=== PATIENT | male | born 1955 | race African-American/Black ===

== ENCOUNTER 2019-10-24 15:43 | Inpatient (IN) | payer MEDICAID, OTHER ==
[~2019-10-24] VITALS: Ht 190.5 cm; Wt 102.1 kg
[2019-10-24] MEDS ORDERED: ASPIRIN 325MG EC TABLET PO ONE (21:15)
[2019-10-24] MEDS ORDERED: ONDANSETRON HCL 4MG/2ML INJ IV ONE (21:15)
[2019-10-24] MEDS ORDERED: MORPHINE SULFATE 10 MG/ML CPJ IV ONE (21:15)
[2019-10-24 21:44] LABS: BASOPHILS % 0.3 % (0.0-2.0); EOSINOPHILS % 0.4 % (0.0-5.0); HEMATOCRIT. 38.1 % (42.0-52.0); LYMPHOCYTES % 17.9 % (20.0-50.0); MEAN CORPUSCULAR HEMOGLOBIN 35.3 pg (28.0-32.0); MEAN CORPUSCULAR VOLUME 103.6 fL (80.0-94.0); MEAN PLATELET VOLUME 7.8 fl (7.4-10.4); MONOCYTES % 11.3 % (2.0-8.0); NEUTROPHILS % 70.1 % (40.0-76.0); PLATELET 183 x1000/uL (130-400); RED BLOOD CELL COUNT 3.67 mill/uL (4.7-6.1); RED CELL DISTRIBUTION WIDTH 15.1 % (11.6-14.6)
[2019-10-24 21:51] LABS: CHLORIDE 98 mEq/L (98-107)
[2019-10-24] MEDS ORDERED: SODIUM CHLORIDE 0.9% 1,000 ML IV ONE (22:13)
[2019-10-24 22:39] LABS: D-DIMER 9.01 mg/L FEU (<0.50); PARTIAL THROMBOPLASTIN TIME 26.6 sec (23.4-31.0); PROTHROMBIN TIME 10.5 sec (9.6-11.0)
[2019-10-24 23:00] LABS: CLARITY URINE CLEAR (CLEAR); COLOR URINE YELLOW (YELLOW); KETONES URINE TRACE (NEGATIVE); LEUKOCYTE ESTERASE URINE NEGATIVE (NEGATIVE); NITRITE URINE NEGATIVE (NEGATIVE); OCCULT BLOOD URINE NEGATIVE (NEGATIVE); PROTEIN URINE 1+ (NEGATIVE); SPECIFIC GRAVITY URINE 1.016 (1.005-1.030)
[2019-10-24] MEDS ORDERED: MORPHINE SULFATE 4 MG/ML CPJ (NOT FOR IM USE) IV ONE (23:45)
[2019-10-25 05:53] VITALS: BP 161/71
[2019-10-25] MEDS: MORPHINE SULFATE 2 MG/ML CPJ (NOT FOR IM USE) IV PRN ×3 (06:47→21:19)
[2019-10-25 08:00] VITALS: BP 121/70
[2019-10-25] MEDS ORDERED: ONDANSETRON HCL 4MG/2ML INJ IV PRN (08:15)
[2019-10-25] MEDS: BLOOD SUGAR DIAGNOSTIC STRIP TEST SCH ×4 (08:15→21:16)
[2019-10-25] MEDS: METOPROLOL TARTRATE 25MG TABLET PO SCH ×2 (08:41→21:13)
[2019-10-25] MEDS: ASPIRIN 81MG TABLET PO SCH (08:42)
[2019-10-25] MEDS: INSULIN LISPRO 100 UNITS/ML SUBCUT SCH ×4 (08:53→21:27)
[2019-10-25] MEDS: INSULIN GLARGINE UD 100 UNITS/ML SYR SUBCUT SCH ×2 (10:28→22:13)
[2019-10-25] MEDS ORDERED: LIDOCAINE HCL 1% 20ML VIAL (Pyxis) INJ ONE (13:43)
[2019-10-25 16:00] VITALS: BP 155/77
[2019-10-25 17:20] LABS: CHLORIDE 101 mEq/L (98-107)
[2019-10-25 17:29] LABS: LDL CHOLESTEROL 19 mg/dL (5-100)
[2019-10-25 17:31] LABS: HDL CHOLESTEROL 67 mg/dL (40-59)
[2019-10-25 20:00] VITALS: BP_SYST 109; BP_SYST 133; BP_SYST 142; BP_DIAS 69; BP_DIAS 70; BP_DIAS 74
[2019-10-25] MEDS: FAMOTIDINE 20MG TABLET PO SCH (21:12)
[2019-10-25 23:07] LABS: BASOPHILS % 0.6 % (0.0-2.0); HEMATOCRIT. 34.9 % (42.0-52.0); HEMOGLOBIN. 11.9 g/dL (14.0-18.0); LYMPHOCYTES % 26.2 % (20.0-50.0); MEAN CORPUSCULAR HEMOGLOBIN 35.5 pg (28.0-32.0); MEAN CORPUSCULAR VOLUME 103.8 fL (80.0-94.0); MEAN PLATELET VOLUME 8.6 fl (7.4-10.4); MONOCYTES % 13.2 % (2.0-8.0); PLATELET 179 x1000/uL (130-400); RED BLOOD CELL COUNT 3.36 mill/uL (4.7-6.1); RED CELL DISTRIBUTION WIDTH 14.9 % (11.6-14.6)
[2019-10-26] VITALS: BP 111/55
[2019-10-26 04:00] VITALS: BP 133/76
[2019-10-26] MEDS: BLOOD SUGAR DIAGNOSTIC STRIP TEST SCH ×4 (07:40→21:33)
[2019-10-26 08:00] VITALS: BP 120/57
[2019-10-26] MEDS: INSULIN LISPRO 100 UNITS/ML SUBCUT SCH ×4 (08:10→21:00)
[2019-10-26] MEDS: ASPIRIN 81MG TABLET PO SCH (09:23)
[2019-10-26] MEDS: METOPROLOL TARTRATE 25MG TABLET PO SCH ×2 (09:24→21:33)
[2019-10-26] MEDS: MORPHINE SULFATE 2 MG/ML CPJ (NOT FOR IM USE) IV PRN ×3 (09:25→20:33)
[2019-10-26] MEDS: INSULIN GLARGINE UD 100 UNITS/ML SYR SUBCUT SCH ×2 (10:05→21:58)
[2019-10-26] MEDS ORDERED: CLONIDINE 0.1MG TABLET PO PRN (14:15)
[2019-10-26 16:00] VITALS: BP 122/65
[2019-10-26 17:12] LABS: BASOPHILS % 0.5 % (0.0-2.0); CREATINE KINASE 64 IU/L (39-308); EOSINOPHILS % 1.4 % (0.0-5.0); HEMOGLOBIN. 11.1 g/dL (14.0-18.0); LYMPHOCYTES % 23.8 % (20.0-50.0); MEAN CORPUSCULAR HEMOGLOBIN 35.2 pg (28.0-32.0); MEAN PLATELET VOLUME 8.6 fl (7.4-10.4); MONOCYTES % 12.6 % (2.0-8.0); NEUTROPHILS % 61.7 % (40.0-76.0); PLATELET 187 x1000/uL (130-400); RED BLOOD CELL COUNT 3.14 mill/uL (4.7-6.1); RED CELL DISTRIBUTION WIDTH 14.8 % (11.6-14.6)
[2019-10-26 17:13] LABS: CREATINE KINASE MB FRACTION < 1.0 ng/mL (0.5-3.6)
[2019-10-26 20:00] VITALS: BP_SYST 110; BP_SYST 119; BP_SYST 92; BP_DIAS 60; BP_DIAS 66; BP_DIAS 67
[2019-10-26] MEDS: FAMOTIDINE 20MG TABLET PO SCH (21:33)
[2019-10-27] VITALS: BP 104/57
[2019-10-27] MEDS: MORPHINE SULFATE 2 MG/ML CPJ (NOT FOR IM USE) IV PRN ×3 (02:35→19:43)
[2019-10-27 04:00] VITALS: BP 118/64
[2019-10-27 06:37] LABS: *BENZODIAZEPINES SCREEN URINE PRESUMTIVE POSITIVE (NEGATIVE); *COCAINE SCREEN URINE NEGATIVE (NEGATIVE); METHADONE URINE SCREEN NEGATIVE (NEGATIVE); OPIATES URINE SCREEN PRESUMTIVE POSITIVE (NEGATIVE)
[2019-10-27 06:39] LABS: *AMPHETAMINES SCREEN URINE NEGATIVE (NEGATIVE); *BARBITURATES SCREEN URINE NEGATIVE (NEGATIVE); CANNABINOID URINE SCREEN NEGATIVE (NEGATIVE); PHENCYCLIDINE URINE SCREEN NEGATIVE (NEGATIVE)
[2019-10-27 06:58] LABS: BASOPHILS % 0.6 % (0.0-2.0); EOSINOPHILS % 1.6 % (0.0-5.0); HEMATOCRIT. 33.1 % (42.0-52.0); HEMOGLOBIN. 11.2 g/dL (14.0-18.0); LYMPHOCYTES % 31.1 % (20.0-50.0); MEAN CORPUSCULAR HEMOGLOBIN 35.1 pg (28.0-32.0); MEAN CORPUSCULAR VOLUME 103.5 fL (80.0-94.0); MEAN PLATELET VOLUME 8.2 fl (7.4-10.4); MONOCYTES % 11.7 % (2.0-8.0); PLATELET 172 x1000/uL (130-400)
[2019-10-27 07:22] LABS: CHLORIDE 105 mEq/L (98-107)
[2019-10-27] MEDS: BLOOD SUGAR DIAGNOSTIC STRIP TEST SCH ×4 (07:40→21:30)
[2019-10-27 07:42] LABS: CREATINE KINASE 51 IU/L (39-308)
[2019-10-27 07:46] LABS: CREATINE KINASE MB FRACTION < 1.0 ng/mL (0.5-3.6)
[2019-10-27 08:00] VITALS: BP 114/76
[2019-10-27] MEDS: INSULIN LISPRO 100 UNITS/ML SUBCUT SCH ×4 (08:10→21:26)
[2019-10-27] MEDS: ASPIRIN 81MG TABLET PO SCH (08:25)
[2019-10-27] MEDS: METOPROLOL TARTRATE 25MG TABLET PO SCH ×2 (08:31→21:26)
[2019-10-27] MEDS: INSULIN GLARGINE UD 100 UNITS/ML SYR SUBCUT SCH ×2 (10:54→21:25)
[2019-10-27] MEDS ORDERED: REGADENOSON 0.4 MG/5 ML IV ONE (11:30)
[2019-10-27 12:00] VITALS: BP 132/70
[2019-10-27 17:15] VITALS: BP 122/72
[2019-10-27 20:00] VITALS: BP 144/72
[2019-10-27] MEDS: FAMOTIDINE 20MG TABLET PO SCH (21:26)
[2019-10-28] VITALS: BP 113/56
[2019-10-28 04:00] VITALS: BP 109/50
[2019-10-28] MEDS: DEXTROSE 50% WATER 50ML SYRINGE IV PRN (05:31)
[2019-10-28] MEDS: INSULIN LISPRO 100 UNITS/ML SUBCUT SCH ×4 (06:29→21:00)
[2019-10-28] MEDS: BLOOD SUGAR DIAGNOSTIC STRIP TEST SCH ×4 (06:29→21:00)
[2019-10-28 07:49] LABS: BASOPHILS % 0.6 % (0.0-2.0); EOSINOPHILS % 1.3 % (0.0-5.0); HEMATOCRIT. 33.7 % (42.0-52.0); HEMOGLOBIN. 11.3 g/dL (14.0-18.0); LYMPHOCYTES % 22.5 % (20.0-50.0); MEAN CORPUSCULAR HEMOGLOBIN 35.1 pg (28.0-32.0); MEAN CORPUSCULAR VOLUME 104.6 fL (80.0-94.0); MEAN PLATELET VOLUME 8.4 fl (7.4-10.4); MONOCYTES % 10.9 % (2.0-8.0); NEUTROPHILS % 64.7 % (40.0-76.0); PLATELET 189 x1000/uL (130-400); RED BLOOD CELL COUNT 3.22 mill/uL (4.7-6.1); RED CELL DISTRIBUTION WIDTH 14.6 % (11.6-14.6)
[2019-10-28 08:00] VITALS: BP_SYST 148; BP_SYST 161; BP_SYST 87; BP_DIAS 62; BP_DIAS 77; BP_DIAS 82
[2019-10-28] MEDS: ASPIRIN 81MG TABLET PO SCH (08:38)
[2019-10-28] MEDS: METOPROLOL TARTRATE 25MG TABLET PO SCH (08:38)
[2019-10-28] MEDS: MORPHINE SULFATE 2 MG/ML CPJ (NOT FOR IM USE) IV PRN ×3 (08:39→22:48)
[2019-10-28] MEDS ORDERED: REGADENOSON 0.4 MG/5 ML IV ONE (09:30)
[2019-10-28] MEDS: INSULIN GLARGINE UD 100 UNITS/ML SYR SUBCUT SCH ×2 (11:50→22:32)
[2019-10-28 12:00] VITALS: BP 136/73
[2019-10-28] MEDS: FLUDROCORTISONE ACETATE 0.1MG TABLET PO SCH (13:31)
[2019-10-28] MEDS ORDERED: SODIUM CHLORIDE 0.9% 1,000 ML IV SCH (15:00)
[2019-10-28 16:00] VITALS: BP 137/51
[2019-10-28 20:00] VITALS: BP_SYST 123; BP_SYST 132; BP_SYST 96; BP_DIAS 54; BP_DIAS 66; BP_DIAS 69
[2019-10-28] MEDS: FAMOTIDINE 40MG TABLET PO SCH (22:30)
[2019-10-29] VITALS: BP 126/62
[2019-10-29 04:00] VITALS: BP 134/70
[2019-10-29] MEDS: BLOOD SUGAR DIAGNOSTIC STRIP TEST SCH ×4 (06:11→21:03)
[2019-10-29] MEDS: DEXTROSE 50% WATER 50ML SYRINGE IV PRN (06:31)
[2019-10-29] MEDS: MORPHINE SULFATE 2 MG/ML CPJ (NOT FOR IM USE) IV PRN ×3 (06:40→21:03)
[2019-10-29] MEDS: INSULIN LISPRO 100 UNITS/ML SUBCUT SCH ×4 (07:29→21:03)
[2019-10-29 08:00] VITALS: BP 142/72
[2019-10-29] MEDS: ASPIRIN 81MG TABLET PO SCH (08:33)
[2019-10-29] MEDS: FLUDROCORTISONE ACETATE 0.1MG TABLET PO SCH (08:33)
[2019-10-29 10:56] LABS: BASOPHILS % 0.8 % (0.0-2.0); EOSINOPHILS % 2.7 % (0.0-5.0); HEMOGLOBIN. 10.9 g/dL (14.0-18.0); LYMPHOCYTES % 30.4 % (20.0-50.0); MEAN CORPUSCULAR HEMOGLOBIN 35.6 pg (28.0-32.0); MEAN CORPUSCULAR VOLUME 104.6 fL (80.0-94.0); MEAN PLATELET VOLUME 8.1 fl (7.4-10.4); MONOCYTES % 11.7 % (2.0-8.0); NEUTROPHILS % 54.4 % (40.0-76.0); PLATELET 196 x1000/uL (130-400); RED BLOOD CELL COUNT 3.06 mill/uL (4.7-6.1); RED CELL DISTRIBUTION WIDTH 14.8 % (11.6-14.6)
[2019-10-29] MEDS: INSULIN GLARGINE UD 100 UNITS/ML SYR SUBCUT SCH ×2 (11:45→21:39)
[2019-10-29 12:00] VITALS: BP 132/69
[2019-10-29 16:00] VITALS: BP 141/66
[2019-10-29 20:00] VITALS: BP_SYST 120; BP_SYST 131; BP_DIAS 67; BP_DIAS 71
[2019-10-29] MEDS: FAMOTIDINE 40MG TABLET PO SCH (21:02)
[2019-10-30] VITALS: BP 145/71
[2019-10-30] MEDS: MORPHINE SULFATE 2 MG/ML CPJ (NOT FOR IM USE) IV PRN (03:13)
[2019-10-30 04:00] VITALS: BP 129/54
[2019-10-30] MEDS: BLOOD SUGAR DIAGNOSTIC STRIP TEST SCH ×4 (06:18→21:48)
[2019-10-30 07:25] LABS: EOSINOPHILS % 2.2 % (0.0-5.0); HEMOGLOBIN. 10.7 g/dL (14.0-18.0); LYMPHOCYTES % 26.8 % (20.0-50.0); MEAN CORPUSCULAR HEMOGLOBIN 35.8 pg (28.0-32.0); MEAN CORPUSCULAR VOLUME 103.4 fL (80.0-94.0); MEAN PLATELET VOLUME 8.2 fl (7.4-10.4); MONOCYTES % 11.7 % (2.0-8.0); NEUTROPHILS % 58.3 % (40.0-76.0); PLATELET 198 x1000/uL (130-400); RED CELL DISTRIBUTION WIDTH 14.8 % (11.6-14.6)
[2019-10-30 08:00] VITALS: BP 160/75
[2019-10-30] MEDS: INSULIN LISPRO 100 UNITS/ML SUBCUT SCH ×4 (08:01→21:52)
[2019-10-30] MEDS: ASPIRIN 81MG TABLET PO SCH (08:06)
[2019-10-30] MEDS: FLUDROCORTISONE ACETATE 0.1MG TABLET PO SCH (08:06)
[2019-10-30] MEDS: ACETAMINOPHEN 325MG TABLET PO PRN (09:18)
[2019-10-30 12:00] VITALS: BP_SYST 123; BP_SYST 133; BP_SYST 157; BP_DIAS 69; BP_DIAS 71; BP_DIAS 86
[2019-10-30] MEDS: HYDROCODONE/ACETAMINOPHEN 10/325MG TABLET PO PRN ×2 (12:27→18:45)
[2019-10-30] MEDS: INSULIN GLARGINE UD 100 UNITS/ML SYR SUBCUT SCH ×2 (12:35→21:53)
[2019-10-30 16:00] VITALS: BP 142/64
[2019-10-30 20:00] VITALS: BP_SYST 130; BP_SYST 146; BP_DIAS 72; BP_DIAS 74
[2019-10-30] MEDS: FAMOTIDINE 40MG TABLET PO SCH (21:54)
[2019-10-31] VITALS: BP 133/70
[2019-10-31 04:00] VITALS: BP 130/60
[2019-10-31] MEDS: BLOOD SUGAR DIAGNOSTIC STRIP TEST SCH ×4 (06:23→21:00)
[2019-10-31 07:39] LABS: BASOPHILS % 1.3 % (0.0-2.0); EOSINOPHILS % 2.6 % (0.0-5.0); HEMOGLOBIN. 10.3 g/dL (14.0-18.0); LYMPHOCYTES % 27.1 % (20.0-50.0); MEAN CORPUSCULAR HEMOGLOBIN 35.7 pg (28.0-32.0); MEAN CORPUSCULAR VOLUME 103.7 fL (80.0-94.0); MEAN PLATELET VOLUME 8.2 fl (7.4-10.4); MONOCYTES % 12.2 % (2.0-8.0); NEUTROPHILS % 56.8 % (40.0-76.0); PLATELET 205 x1000/uL (130-400); RED BLOOD CELL COUNT 2.89 mill/uL (4.7-6.1); RED CELL DISTRIBUTION WIDTH 14.9 % (11.6-14.6)
[2019-10-31 08:00] VITALS: BP 138/53
[2019-10-31] MEDS: INSULIN LISPRO 100 UNITS/ML SUBCUT SCH ×4 (09:23→21:19)
[2019-10-31] MEDS: ASPIRIN 81MG TABLET PO SCH (09:24)
[2019-10-31] MEDS: FLUDROCORTISONE ACETATE 0.1MG TABLET PO SCH (09:24)
[2019-10-31] MEDS: INSULIN GLARGINE UD 100 UNITS/ML SYR SUBCUT SCH ×3 (09:24→21:21)
[2019-10-31] MEDS: HYDROCODONE/ACETAMINOPHEN 10/325MG TABLET PO PRN ×2 (09:59→15:58)
[2019-10-31 12:00] VITALS: BP_SYST 111; BP_SYST 140; BP_SYST 146; BP_DIAS 63; BP_DIAS 73; BP_DIAS 75
[2019-10-31 16:00] VITALS: BP 158/75
[2019-10-31 20:00] VITALS: BP_SYST 115; BP_SYST 128; BP_SYST 146; BP_DIAS 63; BP_DIAS 66; BP_DIAS 75
[2019-10-31] MEDS ORDERED: INSULIN LISPRO 100 UNITS/ML SUBCUT SCH (21:15)
[2019-10-31] MEDS: FAMOTIDINE 40MG TABLET PO SCH (21:18)
[2019-11-01] VITALS: BP 125/69
[2019-11-01] MEDS: HYDROCODONE/ACETAMINOPHEN 10/325MG TABLET PO PRN ×3 (00:35→20:23)
[2019-11-01 04:00] VITALS: BP 143/61
[2019-11-01] MEDS: BLOOD SUGAR DIAGNOSTIC STRIP TEST SCH ×4 (06:42→20:23)
[2019-11-01 08:00] VITALS: BP 156/74
[2019-11-01] MEDS: INSULIN LISPRO 100 UNITS/ML SUBCUT SCH ×4 (08:10→20:24)
[2019-11-01] MEDS: ASPIRIN 81MG TABLET PO SCH (09:23)
[2019-11-01] MEDS: FLUDROCORTISONE ACETATE 0.1MG TABLET PO SCH (09:23)
[2019-11-01] MEDS: INSULIN GLARGINE UD 100 UNITS/ML SYR SUBCUT SCH ×2 (09:23→21:27)
[2019-11-01 12:00] VITALS: BP 94/38
[2019-11-01 16:16] VITALS: BP 102/48
[2019-11-01 20:00] VITALS: BP_SYST 131; BP_SYST 147; BP_SYST 151; BP_DIAS 62; BP_DIAS 67; BP_DIAS 72
[2019-11-01] MEDS: FAMOTIDINE 40MG TABLET PO SCH (20:23)
[2019-11-02] VITALS: BP 126/55
[2019-11-02 04:00] VITALS: BP 141/75
[2019-11-02] MEDS: BLOOD SUGAR DIAGNOSTIC STRIP TEST SCH ×4 (07:46→21:08)
[2019-11-02] MEDS: INSULIN LISPRO 100 UNITS/ML SUBCUT SCH ×4 (07:47→21:13)
[2019-11-02 08:00] VITALS: BP_SYST 135; BP_SYST 93; BP_DIAS 52; BP_DIAS 85
[2019-11-02] MEDS: ASPIRIN 81MG TABLET PO SCH (09:16)
[2019-11-02] MEDS: FLUDROCORTISONE ACETATE 0.1MG TABLET PO SCH (09:16)
[2019-11-02] MEDS: HYDROCODONE/ACETAMINOPHEN 10/325MG TABLET PO PRN ×2 (09:23→21:08)
[2019-11-02] MEDS: INSULIN GLARGINE UD 100 UNITS/ML SYR SUBCUT SCH ×2 (11:08→22:44)
[2019-11-02 16:00] VITALS: BP_SYST 142; BP_SYST 145; BP_SYST 99; BP_DIAS 67; BP_DIAS 71; BP_DIAS 78
[2019-11-02] MEDS: MIDODRINE HCL 2.5MG TABLET PO SCH (17:15)
[2019-11-02 20:00] VITALS: BP 141/84
[2019-11-02] MEDS: FAMOTIDINE 40MG TABLET PO SCH (21:08)
[2019-11-03] VITALS: BP 133/73
[2019-11-03] MEDS: ACETAMINOPHEN 325MG TABLET PO PRN (00:30)
[2019-11-03 04:00] VITALS: BP 128/59
[2019-11-03] MEDS: HYDROCODONE/ACETAMINOPHEN 10/325MG TABLET PO PRN ×3 (05:53→22:09)
[2019-11-03 08:00] LABS: BASOPHILS % 1.3 % (0.0-2.0); EOSINOPHILS % 2.8 % (0.0-5.0); HEMATOCRIT. 29.5 % (42.0-52.0); LYMPHOCYTES % 29.6 % (20.0-50.0); MEAN CORPUSCULAR HEMOGLOBIN 35.3 pg (28.0-32.0); MEAN CORPUSCULAR VOLUME 103.8 fL (80.0-94.0); MEAN PLATELET VOLUME 7.8 fl (7.4-10.4); MONOCYTES % 14.2 % (2.0-8.0); NEUTROPHILS % 52.1 % (40.0-76.0); PLATELET 197 x1000/uL (130-400); RED BLOOD CELL COUNT 2.84 mill/uL (4.7-6.1); RED CELL DISTRIBUTION WIDTH 14.8 % (11.6-14.6)
[2019-11-03] MEDS: INSULIN LISPRO 100 UNITS/ML SUBCUT SCH ×4 (08:10→22:03)
[2019-11-03 08:22] VITALS: BP 132/62
[2019-11-03] MEDS: BLOOD SUGAR DIAGNOSTIC STRIP TEST SCH ×4 (08:24→21:56)
[2019-11-03] MEDS: MIDODRINE HCL 2.5MG TABLET PO SCH ×3 (09:00→16:36)
[2019-11-03] MEDS: FLUDROCORTISONE ACETATE 0.1MG TABLET PO SCH (09:10)
[2019-11-03] MEDS: ASPIRIN 81MG TABLET PO SCH (09:10)
[2019-11-03] MEDS: INSULIN GLARGINE UD 100 UNITS/ML SYR SUBCUT SCH ×2 (09:12→22:03)
[2019-11-03 11:53] VITALS: BP 155/79
[2019-11-03 15:32] VITALS: BP 157/77
[2019-11-03 20:00] VITALS: BP_SYST 104; BP_SYST 152; BP_SYST 157; BP_DIAS 63; BP_DIAS 68
[2019-11-03] MEDS: FAMOTIDINE 40MG TABLET PO SCH (22:04)
[2019-11-04] VITALS: BP 143/65
[2019-11-04 04:00] VITALS: BP 138/63
[2019-11-04] MEDS: BLOOD SUGAR DIAGNOSTIC STRIP TEST SCH (06:13)
[2019-11-04 08:00] VITALS: BP 140/67
[2019-11-04] MEDS: INSULIN LISPRO 100 UNITS/ML SUBCUT SCH (08:45)
[2019-11-04] MEDS: ASPIRIN 81MG TABLET PO SCH (08:45)
[2019-11-04] MEDS: FLUDROCORTISONE ACETATE 0.1MG TABLET PO SCH (08:45)
[2019-11-04] MEDS: MIDODRINE HCL 2.5MG TABLET PO SCH (08:46)
[2019-11-04] MEDS: HYDROCODONE/ACETAMINOPHEN 10/325MG TABLET PO PRN (09:59)
[2019-11-04] MEDS: INSULIN GLARGINE UD 100 UNITS/ML SYR SUBCUT SCH (10:00)
[2019-11-04 12:27] VITALS: BP 143/70
[2019-11-04 12:30] VITALS: BP 143/70
== END 2019-11-04 16:00 | disposition home or self-care (01) | DRG 48 ==
LOC: ER 15:43 → 7WST 10-25 00:12 → ENRESERV 10-25 04:10
PROVIDERS: ADMIT Internal Medicine; ATTEND Internal Medicine
PROC: B54MZZA Ultrasonography of Right Upper Extremity Veins, Guidance (ICD-10-PCS; principal; 2019-10-25)
PROC: 05HY33Z Insertion of Infusion Device into Upper Vein, Percutaneous Approach (ICD-10-PCS; 2019-10-25)
PROC: B51M1ZA Fluoroscopy of Right Upper Extremity Veins using Low Osmolar Contrast, Guidance (ICD-10-PCS; 2019-10-25)
DX: G90.8 Other disorders of autonomic nervous system (principal); N17.9 Acute kidney failure, unspecified; E11.22 Type 2 diabetes mellitus with diabetic chronic kidney disease; E11.51 Type 2 diabetes mellitus with diabetic peripheral angiopathy without gangrene; K21.9 Gastro-esophageal reflux disease without esophagitis; D64.9 Anemia, unspecified; E87.1 Hypo-osmolality and hyponatremia; I12.9 Hypertensive chronic kidney disease with stage 1 through stage 4 chronic kidney disease, or unspecified chronic kidney disease; E66.9 Obesity, unspecified; E78.5 Hyperlipidemia, unspecified; F17.210 Nicotine dependence, cigarettes, uncomplicated; N18.9 Chronic kidney disease, unspecified; E78.00 Pure hypercholesterolemia, unspecified; I95.1 Orthostatic hypotension; Z89.512 Acquired absence of left leg below knee; Z79.4 Long term (current) use of insulin; Z68.28 Body mass index [BMI] 28.0-28.9, adult
CPT/HCPCS: 36415; 36573; 71045; 74176; 76937; 78452; 78582; 80048; 80053; 80061; 80305; 81003; 82550; 82553; 82962; 83036; 83735; 83880; 84443; 84484; 85025; 85379; 93005; 93017; 93306; 93880; 93923; 93970; 96365; 97116; 97162; 97530; 99285; A9500; A9558; C1725; J1815; J2270; J2405; J2785; J3490; J7030